=== PATIENT | female | born 1950 | race Caucasian/White ===

== ENCOUNTER → 2021-06-26 09:19 | Outpatient (CLI) | payer MEDICARE, SELFPAY ==
[2021-06-26 11:44] LABS: Vitamin D 25 Hydroxy (D3) 47.9 ng/mL (30.0-100.0)
[2021-06-26 11:55] LABS: TSH w/ Reflex to FT4 2.26 uIU/mL (0.47-4.68)
[2021-06-27 19:42] LABS: Anti Thyroglobulin Antibody 20.6 IU/mL (0.0-0.9); Thyroid Peroxidase Antibodies 40 IU/mL (0-34)
== END ==
PROVIDERS: PCP Student in an Organized Health Care Education/Training Program; Referring Provider Student in an Organized Health Care Education/Training Program; Visit Provider Student in an Organized Health Care Education/Training Program
DX: E06.3 Autoimmune thyroiditis (principal); E55.9 Vitamin D deficiency, unspecified
CPT/HCPCS: 36415; 82306; 84443; 86376; 86800

== ENCOUNTER → 2021-12-04 11:34 | Outpatient (CLI) | payer MEDICARE, SELFPAY ==
[2021-12-04 13:41] LABS: COVID19 -Nasal RAPID Negative (Negative)
== END ==
PROVIDERS: PCP Student in an Organized Health Care Education/Training Program; Visit Provider Family Medicine Sleep Medicine
DX: Z20.822 Contact with and (suspected) exposure to COVID-19 (principal)
CPT/HCPCS: 87635; C9803

== ENCOUNTER → 2021-12-11 10:28 | Outpatient (CLI) | payer MEDICARE, SELFPAY ==
[2021-12-11 11:18] LABS: COVID19 -Nasal RAPID Negative (Negative)
== END ==
PROVIDERS: PCP Student in an Organized Health Care Education/Training Program; Visit Provider Family Medicine Sleep Medicine
DX: Z20.822 Contact with and (suspected) exposure to COVID-19 (principal)
CPT/HCPCS: 87635; C9803

== ENCOUNTER → 2021-12-13 08:25 | Day surgery (SDC) | payer MEDICARE, SELFPAY ==
--- NOTE | 2021-12-13 08:00 | P.OP_ITS ---
Operative Date/Time/Diagnoses Date of procedure: 12/25/21 Time of procedure: 09:45 Procedure & Clinicians Procedure: Preoperative diagnoses: 1. Significant left cortical and Nuclear sclerotic cataract 2. Astigmatism which is to be corrected with a toric intraocular lens implant. 3. History of Sharee's thyroiditis and control 4. Anxiety Postoperative diagnoses: 1. Cataract removal with phacoemulsification with toric posterior chamber intraocular lens implant placed. Procedure: Phacoemulsification with posterior chamber toric intraocular lens implant. Surgeon: Bella Buck MD Complications: None Specimen: None Implant: [id number] [place] 160 Blood loss: None Anesthesia: Retrobulbar with monitored standby Description of procedure: Patient presents with a complaint of decreased vision due to cataract which is affecting activities of daily living especially reading and night driving. The patient wants surgery to improve vision and astigmatism. The patient understands the extra risk of surgery during the COVID-19 epidemic and wishes to proceed. Her surgery was originally scheduled for December but due to the unavailability of needed intraocular medication was rescheduled until today. This medication is now available and she is anxious to proceed. The patient has tested negative for active virus within 72 hours of the procedure. The patient was taken to the operating room and proparacaine drops placed. Indelible ink king were placed at the 90 and 180 degree meridian. The patient was placed on the operating room table and given IV sedation. A retrobulbar block insert consisting of 6 cc of 2% xylocaine without epinephrine mixed half and half with 0.5% Marcaine with 1 cc of hyaluronidase added is placed between the medial and lateral 1/3 of the inferior orbital rim. The eye is manually massaged for 30 sec, prepped using Betadine solution, and draped in the usual sterile fashion. Temporal approach was made, a 1 mm side-port incision was made 90? from the proposed corneal wound. Phenylephrine 1.5% mixed with 1% xylocaine 0.2 cc was placed into the anterior chamber. Endocoat followed by Sarah was then placed. A 2.6 mm clear incision with a 2.6 mm blade was placed at the 170 degree meridian. A 360 degree capsulorrhexis style capsulotomy was then performed with a cystitome needle on a Healon. Hydrodelineation and hydrodissection were performed. The phacoemulsification unit is introduced, and sculpting used to groove the central lens. It is then removed in chopping mode. Epi nucleus is removed with epinuclear mode and irrigation aspiration was used to remove the peripheral cortex. The posterior capsule is polished. The intraocular lens is selected, inspected, power confirmed, and placed in the posterior chamber at the desired meridian. The pupil was not constricted. The wound was stromally hydrated and tested for leaks, there was none and it was left sutureless. Intracameral moxifloxacin 0.1 cc was placed into the anterior chamber. Kenalog 0.2 cc was placed in the superior subconjunctival space. A drop of antibiotic and was placed and the eye was patched and shielded. The patient was stable and returned to the recovery room in excellent condition. Dictated by: Bella Buck MD Copy to: [facility] Same procedure as scheduled: Yes
[2021-12-13 08:47] VITALS: BMI 20.3
== END | disposition home or self-care (01) ==
PROVIDERS: PCP Student in an Organized Health Care Education/Training Program; Referring Provider Ophthalmology; Visit Provider Ophthalmology
DX: Z01.812 Encounter for preprocedural laboratory examination (principal)

== ENCOUNTER 2021-12-25 12:50 | Day surgery (SDC) | payer MEDICARE, SELFPAY ==
--- NOTE | 2021-12-04 17:48 | PM.PREOP ---
Pre-operative Note COVID-19 COVID-19 status: Negative Criteria for continued procedure: Expected advancement of disease process, Possibility delay results in more complex future surgery or treatment, Increased loss of function, Delay expected to result in less-positive ultimate med/surg outcome and Non-surgical alternatives not available or appropriate per current SOC Interval Note History & Physical reviewed/Exam performed by Physician: Yes Changes to H&P: No
--- NOTE | 2021-12-04 17:52 | PM.OP.1 ---
Operative Date/Time/Diagnoses Date of procedure: 12/25/21 Time of procedure: 11:45 Procedure & Clinicians Procedure: Preoperative diagnoses: 1. Significant left cortical and Nuclear sclerotic cataract 2. Astigmatism which is to be corrected with a toric intraocular lens implant. 3. Anxiety 4. Sharee thyroiditis 5. Depression Postoperative diagnoses: 1. Cataract removal with phacoemulsification with toric posterior chamber intraocular lens implant placed. Procedure: Phacoemulsification with posterior chamber toric intraocular lens implant. Surgeon: Bella Buck MD Complications: None Specimen: None Implant: [id number] axis 160 Blood loss: None Anesthesia: Retrobulbar with monitored standby Description of procedure: Patient presents with a complaint of decreased vision due to cataract which is affecting activities of daily living especially night driving. The patient wants surgery to improve vision and astigmatism. The patient understands the extra risk of surgery during the COVID-19 epidemic and wishes to proceed. The patient has tested negative for active virus within 72 hours of the procedure. The patient was taken to the operating room and proparacaine drops placed. Indelible ink king were placed at the 90 and 180 degree meridian. The patient was placed on the operating room table and given IV sedation. A retrobulbar block insert consisting of 6 cc of 2% xylocaine without epinephrine mixed half and half with 0.5% Marcaine with 1 cc of hyaluronidase added is placed between the medial and lateral 1/3 of the inferior orbital rim. The eye is manually massaged for 30 sec, prepped using Betadine solution, and draped in the usual sterile fashion. Temporal approach was made, a 1 mm side-port incision was made 90? from the proposed corneal wound. Phenylephrine 1.5% mixed with 1% xylocaine 0.2 cc was placed into the anterior chamber. Due to cortical spokes in the visual axis an air bubble was placed followed by Vision blue dye. The excess dye was removed with BSS. followed by Healon was then placed. A 2.6 mm clear incision with a 2.6 mm blade was placed at the 170 degree meridian. A 360 degree capsulorrhexis style capsulotomy was then performed with a cystitome needle on a Healon greatly aided by the capsular dye. Hydrodelineation and hydrodissection were performed. The phacoemulsification unit is introduced, and sculpting used to groove the central lens. It is then removed in chopping mode. Epi nucleus is removed with epinuclear mode and irrigation aspiration was used to remove the peripheral cortex. It was very sticky to the peripheral capsule and viscoelastic was placed several times to remove. posterior capsule is polished. The intraocular lens is selected, inspected, power confirmed, and placed in the posterior chamber at the desired meridian of 160?. The lens originally over rotated extra viscoelastic was placed in the lens of spun 170? to the desired meridian of 160. The pupil was not constricted. The wound was stromally hydrated and tested for leaks, there was none and it was left sutureless. Intracameral moxifloxacin 0.1 cc was placed into the anterior chamber. Kenalog 0.2 cc was placed in the superior subconjunctival space. A drop of antibiotic and was placed and the eye was patched and shielded. The patient was stable and returned to the recovery room in excellent condition. Dictated by: Bella Buck MD Copy to: [facility] Same procedure as scheduled: Yes
--- NOTE | 2021-12-24 17:37 | P.HP_ITS ---
History of Present Illness History of Present Illness Date Patient Seen: 12/25/21 Time Patient Seen: 14:00 Date of Onset of Symptoms: 10/14/20 Chief complaint: SDC/TORIC PD Narrative: Patient is a 71-year-old female with history of Sharee thyroiditis and anxiety. She presents with complaint of difficulty reading due to her glare from cataracts. This started about 2 years ago though the cataracts were diagnosed in 2018. Her other medical conditions are depression hearing loss psoriasis and eczema she has no allergies she takes no medication. She is gluten sensitive. Her current review of systems is negative and she is a nonsmok er vision is 2024 in both eyes with poor quality endpoint on refraction blood pressure is 129/75 pulse is 70 she has regular rhythm to her heart and clear lungs cataracts are 2+ nuclear sclerotic and cortical through the visual axis left more than right eye which might require capsular dye, there was no retinal pigment epithelial changes cup-to-disc is 0.3 intra-ocular pressure is normal at 11 right eye 12 left eye she has a family history of diabetes mellitus and had a vitreous degeneration in 2019. Due to high astigmatism she elects a toric intra-ocular lens implant of D IU 150+ 19.5 axis 160 with a distance target. After discussion of risk and benefits she desires to proceed with left cataract surgery with a toric intra-ocular lens. Patient History Medical History (Updated 06/30/21 @ 09:30 by Salvador Perdomo MD) Allergies Cataracts, bilateral (~2008) Depression Sharee's disease (~1999) Hearing loss (~2016) Irritable bowel syndrome Recurrent sinusitis (~2018) Thyroid nodule (~1999) Wears glasses Surgical History (Updated 06/19/21 @ 20:14 by Wilda Guo) History of hernia repair (~1988) Family & Social History Family History (Updated 06/19/21 @ 20:25 by Wilda Guo) Father History of heart disease Mother Hyperlipidemia Mental health problem Grandfather Cancer Grandmother Diabetes mellitus Hyperlipidemia Mental health problem Grandmother Pneumonia Tobacco & Substance use: Smoking Status Never smoker Meds Home Medications and Allergies Home Medications Medication Instructions Recorded Confirmed Type fluocinonide 0.05 % topical cream 1 applic TOPICAL BID #15 g 06/20/21 06/20/21 Rx Allergies Allergy/AdvReac Type Severity Reaction Status Date / Time No Known Drug Allergies Allergy Verified 12/13/21 08:46 Assessment & Plan Time Spent With Patient Critical Care time: I spent a total of [] minutes of critical care time on this patient's care today; this time is exclusive of procedural time.
[2021-12-25] MEDS: PROPARACAINE 0.5% OPHTH SOL 2 DROPS EYE-OP ×2 (13:14→15:25)
[2021-12-25 13:18] VITALS: BP 124/57; PULSE 65; RESP 12; TEMP 36.6; O2SAT 100; BMI 20.9
[2021-12-25] MEDS: CATARACT EYE COMPOUND (10 DROPS/SYRINGE) 3 DROPS EYE-OP (13:20)
[2021-12-25 13:41] LABS: COVID19 -Nasal RAPID Negative (Negative)
[2021-12-25] MEDS: LIDOCAINE 2% 4 ML, BUPIVACAINE 0.5% (PF) 4 ML, HYALURONIDASE 150 UNIT INJ (15:35)
[2021-12-25] MEDS: MOXIFLOXACIN INJ 4 MG/0.8 ML VIAL 0.5 MG EYE-OP (15:46)
[2021-12-25] MEDS: ERYTHROMYCIN OPHTH 1 GM OINT 1 APPLIC EYE-LEFT (15:46)
[2021-12-25] MEDS: PHENYLEPHRINE/LIDOCAINE VIAL (OR) 0.2 ML EYE-OP (15:46)
[2021-12-25] MEDS: HYALURONATE SODIUM 30 MG-10 MG/ML SYRINGES 1 BOX INTRAOCULA (15:46)
[2021-12-25] MEDS: BALANCED SALT IRRIG SOLN NO.2 500 ML, EPINEPHrine 1 MG IRR (15:48)
[2021-12-25] MEDS: TRYPAN BLUE 0.5 ML SYRINGE INJ (15:48)
[2021-12-25] MEDS: TRIAMCINOLONE 50 MG/5 ML VIAL INJ (15:48)
== END 2021-12-25 16:50 | disposition home or self-care (01) ==
LOC: OR 12:54
PROVIDERS: PCP Student in an Organized Health Care Education/Training Program; Referring Provider Ophthalmology; Visit Provider Ophthalmology
PROC: (CPT 66984; principal; 2021-12-25 14:15)
DX: H25.812 Combined forms of age-related cataract, left eye (principal); Z20.822 Contact with and (suspected) exposure to COVID-19; H52.202 Unspecified astigmatism, left eye; F32.9 Major depressive disorder, single episode, unspecified; E06.3 Autoimmune thyroiditis; F41.9 Anxiety disorder, unspecified
CPT/HCPCS: 66984; 87635; J0171; J2704; J3301; J3470; V2787

== ENCOUNTER → 2022-08-06 16:21 | Outpatient (CLI) | payer MEDICARE, SELFPAY ==
[2022-08-06 17:33] LABS: Add Manual Diff / Slide Review NO; Basophils Absolute Auto 100 /uL (0-100); Eosinophils Absolute Auto 200 /uL (0-450); Eosinophils Percent Auto 2.6 % (2-4); Hematocrit 39.9 % (36-46); Hemoglobin 13.7 g/dL (12.0-16.0); Lymphocytes Absolute Auto 2000 /uL (1100-4500); Lymphocytes Percent Auto 34.2 % (25-40); Mean Corpuscular HGB Conc 34.2 % (30-36); Mean Corpuscular Volume 99.2 fL (80-100); Monocytes Absolute Auto 500 /uL (0-900); Monocytes Percent Auto 9.3 % (3-14); Neutrophils Absolute Auto 3100 /uL (1500-7000); Neutrophils Percent Auto 52.9 % (50-75); Platelet Count 277 X10^3/uL (150-400); Red Blood Cell Count 4.02 X10^6/uL (4.0-5.2); White Blood Cell Count 5.8 X10^3/uL (4.5-11.0)
[2022-08-06 17:54] LABS: Alanine Aminotransferase 17 IU/L (<35); Albumin 4.5 g/dL (3.5-5.0); Albumin Globulin Ratio 1.3 (1.0-2.8); Alkaline Phosphatase 68 U/L (38-126); Aspartate Aminotransferase 25 IU/L (14-36); Bilirubin Total 0.3 mg/dL (0.2-1.3); Blood Urea Nitrogen 16 mg/dL (7-17); Calcium 9.4 mg/dL (8.4-10.2); Carbon Dioxide 31 mmol/L (22-32); Chloride 101 mmol/L (98-107); Cholesterol 236 mg/dL (140-199); Estimated Glomerular Filt Rate > 60 mL/min (>60); Globulin 3.4 g/dL (1.7-4.1); Glucose 101 mg/dL (80-110); HDL Cholesterol 84 mg/dL (40-60); HEMOLYSIS < 15 (0-50); LDL Cholesterol Calculated 134 mg/dL (<100); Potassium 4.1 mmol/L (3.4-5.1); Sodium 141 mmol/L (137-145); Total Protein 7.9 g/dL (6.3-8.2); Triglycerides 88 mg/dL (35-150)
[2022-08-06 18:21] LABS: Vitamin D 25 Hydroxy (D3) 51.9 ng/mL (30.0-100.0)
[2022-08-06 18:22] LABS: TSH w/ Reflex to FT4 3.36 uIU/mL (0.47-4.68)
[2022-08-06 18:42] LABS: Vitamin B12 528 pg/mL (239-931)
== END ==
PROVIDERS: PCP Student in an Organized Health Care Education/Training Program; Referring Provider Student in an Organized Health Care Education/Training Program; Visit Provider Student in an Organized Health Care Education/Training Program
DX: E06.3 Autoimmune thyroiditis (principal); R53.83 Other fatigue; F32.9 Major depressive disorder, single episode, unspecified
CPT/HCPCS: 36415; 80053; 80061; 82306; 82607; 84443; 85025

== ENCOUNTER → 2023-05-16 14:17 | Outpatient (CLI) | payer MEDICARE, SELFPAY ==
[2023-05-16 15:02] LABS: Add Manual Diff / Slide Review NO; Basophils Absolute Auto 100 /uL (0-100); Basophils Percent Auto 2.1 % (0-2); Eosinophils Absolute Auto 600 /uL (0-450); Hematocrit 38.1 % (36-46); Lymphocytes Absolute Auto 1600 /uL (1100-4500); Lymphocytes Percent Auto 28.8 % (25-40); Mean Corpuscular HGB Conc 34.1 % (30-36); Mean Corpuscular Hemoglobin 32.8 PG (26-34); Mean Corpuscular Volume 96.3 fL (80-100); Monocytes Absolute Auto 800 /uL (0-900); Monocytes Percent Auto 13.9 % (3-14); Neutrophils Absolute Auto 2500 /uL (1500-7000); Neutrophils Percent Auto 45.2 % (50-75); Platelet Count 389 X10^3/uL (150-400); Red Blood Cell Count 3.96 X10^6/uL (4.0-5.2); White Blood Cell Count 5.6 X10^3/uL (4.5-11.0)
[2023-05-16 15:16] LABS: Erythrocyte Sedimentation Rate 25 MM/HR (0-20)
[2023-05-16 15:39] LABS: Alanine Aminotransferase 15 IU/L (<35); Albumin 4.1 g/dL (3.5-5.0); Albumin Globulin Ratio 1.3 (1.0-2.8); Alkaline Phosphatase 83 U/L (38-126); Aspartate Aminotransferase 25 IU/L (14-36); BUN Creatinine Ratio 18.1 (6-22); Bilirubin Total 0.4 mg/dL (0.2-1.3); Blood Urea Nitrogen 13 mg/dL (7-17); Carbon Dioxide 28 mmol/L (22-32); Chloride 96 mmol/L (98-107); Creatine Kinase 72 U/L (30-135); Estimated Glomerular Filt Rate > 60 mL/min (>60); Globulin 3.1 g/dL (1.7-4.1); Glucose 94 mg/dL (80-110); HEMOLYSIS < 15 (0-50); Potassium 4.3 mmol/L (3.4-5.1); Sodium 133 mmol/L (137-145); Total Protein 7.2 g/dL (6.3-8.2)
[2023-05-16 15:46] LABS: NT-proBNP (BNP-Adult 18+) 201 pg/mL (<125)
[2023-05-16 16:07] LABS: TSH w/ Reflex to FT4 2.02 uIU/mL (0.47-4.68)
== END ==
PROVIDERS: PCP Pediatrics; Referring Provider Pediatrics; Visit Provider Pediatrics
DX: E06.3 Autoimmune thyroiditis (principal); R06.02 Shortness of breath; R68.89 Other general symptoms and signs; U09.9 Post COVID-19 condition, unspecified; Z74.09 Other reduced mobility; R53.83 Other fatigue
CPT/HCPCS: 36415; 80053; 82550; 83880; 84443; 85025; 85651

== ENCOUNTER → 2023-05-17 10:13 | Outpatient (CLI) | payer MEDICARE, SELFPAY | PROVIDERS: PCP Pediatrics; Referring Provider Pediatrics; Visit Provider Pediatrics | DX: R06.02 Shortness of breath (principal) | CPT/HCPCS: 93005; 93010 ==

== ENCOUNTER → 2024-06-29 17:08 | Outpatient (CLI) | payer MEDICARE, SELFPAY ==
[2024-06-29 18:11] LABS: Hematocrit 43.3 % (36-46); Hemoglobin 14.5 g/dL (12.0-16.0); Mean Corpuscular HGB Conc 33.6 % (30-36); Mean Corpuscular Hemoglobin 33.1 PG (26-34); Mean Corpuscular Volume 98.5 fL (80-100); Platelet Count 339 X10^3/uL (150-400); Red Cell Distribution Width 13.4 % (11.6-14.8); White Blood Cell Count 6.7 X10^3/uL (4.5-11.0)
[2024-06-29 18:32] LABS: Alanine Aminotransferase 15 IU/L (<35); Albumin 4.5 g/dL (3.5-5.0); Albumin Globulin Ratio 1.3 (1.0-2.8); Alkaline Phosphatase 65 U/L (38-126); Aspartate Aminotransferase 25 IU/L (14-36); Bilirubin Total 0.4 mg/dL (0.2-1.3); Blood Urea Nitrogen 17 mg/dL (7-17); Calcium 9.3 mg/dL (8.4-10.2); Carbon Dioxide 27 mmol/L (22-32); Chloride 100 mmol/L (98-107); Estimated Glomerular Filt Rate > 60 mL/min (>60); Globulin 3.5 g/dL (1.7-4.1); Glucose 104 mg/dL (80-110); HEMOLYSIS 19 (0-50); Potassium 3.8 mmol/L (3.4-5.1); Sodium 135 mmol/L (137-145)
[2024-06-29 19:02] LABS: TSH w/ Reflex to FT4 3.04 uIU/mL (0.47-4.68)
[2024-06-29 19:35] LABS: Erythrocyte Sedimentation Rate 5 MM/HR (0-20)
[2024-07-01 04:48] LABS: C-Reactive Protein Quant < 0.5 mg/dL (<1.0)
== END ==
LOC: LAB 17:08
PROVIDERS: PCP Internal Medicine; Referring Provider Internal Medicine; Visit Provider Internal Medicine
DX: E06.3 Autoimmune thyroiditis (principal); F41.1 Generalized anxiety disorder; R06.02 Shortness of breath
CPT/HCPCS: 36415; 80053; 84443; 85027; 85651; 86140

== ENCOUNTER → 2024-07-17 12:35 | Outpatient (CLI) | payer MEDICARE, SELFPAY | PROVIDERS: PCP Internal Medicine; Visit Provider Nurse Practitioner Family | DX: N94.89 Other specified conditions associated with female genital organs and menstrual cycle (principal); R30.0 Dysuria | CPT/HCPCS: 87086; 87210 ==

== ENCOUNTER → 2025-07-27 15:55 | Outpatient (CLI) | payer MEDICARE, SELFPAY ==
[2025-07-27 17:05] LABS: Hematocrit 41.5 % (36-46); Hemoglobin 14.2 g/dL (12.0-16.0); Mean Corpuscular HGB Conc 34.1 % (30-36); Mean Corpuscular Hemoglobin 33.7 PG (26-34); Mean Corpuscular Volume 98.7 fL (80-100); Platelet Count 323 X10^3/uL (150-400)
[2025-07-27 17:30] LABS: Alanine Aminotransferase 15 IU/L (<35); Albumin 4.7 g/dL (3.5-5.0); Albumin Globulin Ratio 1.5 (1.0-2.8); Alkaline Phosphatase 74 U/L (38-126); Blood Urea Nitrogen 18 mg/dL (7-17); Calcium 9.6 mg/dL (8.4-10.2); Carbon Dioxide 28 mmol/L (22-32); Chloride 100 mmol/L (98-107); Cholesterol 253 mg/dL (140-199); Estimated Glomerular Filt Rate > 60 mL/min (>60); Globulin 3.1 g/dL (1.7-4.1); Glucose 93 mg/dL (70-99); HDL Cholesterol 105 mg/dL (40-60); HEMOLYSIS < 15 (0-50); Potassium 4.8 mmol/L (3.4-5.1); Sodium 136 mmol/L (137-145); Total Protein 7.8 g/dL (6.3-8.2); Triglycerides 164 mg/dL (35-150)
[2025-07-27 17:43] LABS: Free T3, Triiodothyronine Free 3.80 pg/mL (2.77-5.27); Free T4, Direct Thyroxine 1.35 ng/dL (0.78-2.19); T4 Total Thyroxine 8.65 ug/dL (5.5-11.0)
[2025-07-27 17:56] LABS: Thyroid Stimulating Hormone 2.60 uIU/mL (0.47-4.68)
== END ==
PROVIDERS: PCP Internal Medicine; Referring Provider Internal Medicine; Visit Provider Internal Medicine
DX: E06.3 Autoimmune thyroiditis (principal); E78.2 Mixed hyperlipidemia; R06.02 Shortness of breath
CPT/HCPCS: 36415; 80053; 80061; 84436; 84439; 84443; 84481; 85027; 85651; 86140